=== PATIENT | female | born 1955 | race Caucasian/White ===

== ENCOUNTER 2016-08-13 15:13 | Observation (INO) ==
[~2016-08-13 15:13] MED LIST: NEURONTIN PO SCH
[2016-08-13 16:27] VITALS: BP 137/86
[2016-08-13] MEDS ORDERED: ASPIRIN PO STA (16:29)
[2016-08-13] MEDS ORDERED: PROTONIX IV SCH (16:29)
[2016-08-13] MEDS ORDERED: NITROGLYCERIN 50 MG/D5W 50 MG/250 ML IV.SOLN IV SCH (16:29)
[2016-08-13] MEDS ORDERED: MORPHINE IV PRN (16:29)
[2016-08-13] MEDS ORDERED: LOVENOX SUBQ SCH (16:29)
[2016-08-13] MEDS ORDERED: SODIUM CHLORIDE 0.9% INJ SCH (16:29)
[2016-08-13 17:02] LABS: ALLEN TEST YES; BE 4.2 mmoll (-3.0-3.0); BLOOD TYPE ARTERIAL; DRAW SITE R RADIAL; METHB 1.3 % (0.0-1.5); O2(CT) 17.4 mL/dL (15.0-23.0); PCO2(98.6) 40 mmHg (35-45); PO2(98.6) 75 mmHg (60-100); SAMPLE BLOOD; SAO2 97.7 % (95.0-100.0); THB 13.7 g/dL (11.5-17.4); pH(98.6) 7.46 (7.35-7.45)
[2016-08-13 17:05] LABS: MODALITY ROOM AIR
[2016-08-13 17:42] LABS: AGAP 14; ALBUMIN 4.5 g/dL (3.5-5.0); ALKALINE PHOSPHATASE 103 U/L (32-104); BUN 10 mg/dL (8-22); CHLORIDE 84 mmol/L (98-107); COSMO 250; GOT 13 U/L (10-30); GPT 12 U/L (10-36); POTASSIUM 4.1 mmol/L (3.5-5.1); SODIUM 125 mmol/L (136-145); TCO2 27 mmol/L (25-35); TOTAL BILIRUBIN 0.15 mg/dL (0.20-1.00); TOTAL PROTEIN 7.7 g/dL (6.3-8.3)
[2016-08-13] MEDS ORDERED: NICODERM PATCH TD SCH (17:45)
--- NOTE | 2016-08-13 18:03 | Diag Imaging Result Doc PS360 ---
CHEST-PORTABLE - 08/13/2016 INDICATION: sob TECHNIQUE: COMPARISON: None FINDINGS: The lungs are normally expanded and clear. Heart size and mediastinal contours are normal. No pneumothorax or pleural effusion. IMPRESSION: Negative exam. Electronically signed by Ric Urena 08/13/2016 6:01 PM
[2016-08-13 18:05] LABS: HEMOGLOBIN A1C 5.1 % (4.8-6.0)
[2016-08-13] MEDS ORDERED: BUPAP PO PRN (18:18)
[2016-08-13] MEDS ORDERED: REQUIP PO PRN (18:18)
[2016-08-13] MEDS ORDERED: DESYREL PO PRN (18:18)
[2016-08-13] MEDS ORDERED: SERAX PO ONE (19:41)
[2016-08-13] MEDS ORDERED: IMDUR PO SCH (21:00)
[2016-08-13] MEDS ORDERED: NEURONTIN PO SCH ×2 (21:00)
--- NOTE | 2016-08-13 21:14 | HISTORY AND PHYSICAL ---
CHIEF COMPLAINT: Chest pain radiating to the shoulder for the last 10 days. Intermittent 10/10 with exertion alleviated by rest, getting worsening. She was seen in the [facility] in the ER. She has a history Prinzmetal's angina. [facility] ER workup was essentially unremarkable. EKG, normal sinus, nothing acute. Patient has been admitted to the hospital for evaluation of left heart catheterization. After arrival, EKG was unremarkable. The patient was pain-free with morphine. She was a heavy smoker. She was placed on nitroglycerin paste. Options were discussed. Follow up on cardiac enzymes. Based on that, further recommendations will be followed. As a result, a hospital admission was warranted. PAST MEDICAL HISTORY: Prinzmetal's angina, fibrocystic disease of breast, fibromyalgia, GERD, headache syndromes, osteoarthritis of left hip, peripheral vascular disease, right iliac artery angioplasty, lumbar spine spondylosis. PAST SURGICAL HISTORY: Complete hysterectomy, cholecystectomy. MEDICINES: Lozol 1.25 daily, isosorbide 30 mg daily, methocarbamol 750, 3 times daily, [place] 3.5 twice daily, Serax 50 mg t.i.d., Premarin 50/325, 1 tab b.i.d., Prilosec 20 daily. Ropinole , 1 tablet daily, trazodone 50 mg daily. ALLERGIES: Not known. SOCIAL HISTORY: , 1 kid. Lives in [place]. Smoking. No alcohol. FAMILY HISTORY: Father at 87 from aortic aneurysm. Mom of heart attack at 78. Brothers have diabetes. REVIEW OF SYSTEMS: HEENT: No headache. No vision problem. No earache. No sore throat. Neck: No goiter. No lymphadenopathy. No bruit. Cardiopulmonary: Exertional chest pain, shortness of breath, PND, orthopnea. GI: No nausea, vomiting, abdominal pain. : No history of hesitancy, frequency. No swelling of feet. No joint pain. Neurologic: No obvious focal symptoms or weakness. PHYSICAL EXAMINATION: VITAL SIGNS: Stable. 5 feet 6, 140 pounds. HEENT: Atraumatic, normocephalic. Pupils equal, react to light. TMs are normal. Nose and throat within normal limits. NECK: Supple. No lymphadenopathy. No goiter. JVD is normal. CHEST: Clear to auscultation. HEART: Sounds are regular. BREASTS: Exam deferred. ABDOMEN: Belly is soft, nontender. Good bowel sounds. No masses palpable. No peripheral edema, cyanosis, clubbing. NEUROLOGIC: No obvious focal deficits. INVESTIGATIONS: ABG: PH is 7.46, pCO2 40, pO2 75, bicarb 28, carboxyhemoglobin 6.3. SMA 12: Sodium 135, potassium 4.1, chloride 84, BUN 10, creatinine 0.6, and A1c 5.1. LFTs were normal. Cardiac enzymes, proBNP normal. TSH is normal. Chest x-ray was stable. EKG normal sinus, nothing acute. ASSESSMENT AND PLAN: 1. A 61-year-old white female, admitted to the hospital with exertional chest pain. Resting electrocardiogram is normal. Currently on aspirin, morphine, Lovenox and will schedule for a stress test versus catheterization. Tobacco abuse. Quit smoking. Nicotrol patch. 2. Reconcile home medications. 3. Chronic pain, on gabapentin and hydrocodone. 4. Chronic headaches, taking quinoline. 5. Chronic anxiety, on Serax. 6. Restless legs syndrome. 7. Acute on chronic insomnia on trazodone. 8. Patient does not want to do any chemical stress test. In the meantime, the nurses called me. She did not get her Serax on time and she basically signed out against medical advice. cc: Candido Branham MD MTDD
--- NOTE | 2016-08-14 05:15 | EKG Report ---
Test Performed on : 08/13/2016 4:39:14 PM Test Reason : chest pain Blood Pressure : / mmHG Vent. Rate : 056 BPM Atrial Rate : 056 BPM P-R Int : 142 ms QRS Dur : 088 ms QT Int : 412 ms P-R-T Axes : 055 072 071 degrees QTc Int : 397 ms Sinus bradycardia. Otherwise normal ECG When compared with ECG of 08-NOV-2008 14:15, No significant change was found Confirmed by Kory Russell MD ([id number]) on 08/15/2016 7:15:57 AM
[2016-08-14] MEDS ORDERED: NORCO-7.5 PO SCH (09:00)
[2016-08-14] MEDS ORDERED: SERAX PO SCH (09:00)
[2016-08-14] MEDS ORDERED: ROBAXIN PO SCH (09:00)
--- NOTE | 2016-08-14 09:05 | ECHO REPORT ---
ORDER DATE: 08/13/2016 INTERPRETING PHYSICIAN: Dr. Rodriguez. CLINICAL INDICATIONS: A 61-year-old female with pulmonary embolism, coronary heart disease. M-MODE MEASUREMENTS: Right ventricle: 3.1 cm. Left ventricle end diastole: 4.3 cm. Left ventricle end systole: 2.9 cm. Posterior wall: 0.9 cm. Interventricular septum: 1.0 cm. Left atrium: 3.3 cm. Aortic root: 3.3 cm. SUMMARY OF 2-DIMENSIONAL IMAGIN. The left ventricular function is normal. Ejection fraction is estimated at 59%. No wall motion abnormality is noted. 2. The right ventricle is borderline enlarged, normal function. 3. The mitral valve looks normal. Color flow mapping indicates a mild degree of regurgitation. Pulsed wave Doppler of mitral inflow is normal. The tissue Doppler of septal and lateral mitral annulus averages 9 cm. The pulmonary venous flow is normal. There is no diastolic dysfunction. 4. The tricuspid valve looks normal. Color flow mapping indicates a very mild degree of regurgitation. Inferior vena cava is not dilated. Pulmonary pressure is estimated at 29 mmHg. 5. The pulmonic valve looks normal. Color flow mapping unremarkable. 6. The aortic valve looks normal. Color flow mapping unremarkable. 7. There is no pericardial effusion, masses, nor thrombus. CONCLUSIONS: In summary, this study shows: 1. Normal left ventricular systolic function. 2. A very mild degree of mitral and tricuspid regurgitation. 3. No diastolic dysfunction. 4. Pulmonary pressure is 29 mmHg. 5. Unremarkable aortic valve. Clinical correlation recommended. cc: MD Candido Rojas MD
== END 2016-08-13 20:19 | disposition left against medical advice (07) ==
LOC: INTOOBSV 15:13 → DIRADM 15:13 → 4N 16:13
PROVIDERS: ADMIT Internal Medicine; ATTEND Internal Medicine